=== PATIENT | female | born 1995 ===

== ENCOUNTER 2017-03-28 12:14 | Emergency (ER) | payer SELFPAY ==
[~2017-03-28] VITALS: Ht 177.8 cm; Wt 73.0 kg
[2017-03-28 12:33] VITALS: BP 123/83
== END 2017-03-28 19:45 | disposition left against medical advice (07) ==
LOC: ER 13:48
DX: R11.10 Vomiting, unspecified (principal); R42 Dizziness and giddiness; Z53.21 Procedure and treatment not carried out due to patient leaving prior to being seen by health care provider